=== PATIENT | male | born 1960 | race Caucasian/White ===

== ENCOUNTER 2017-02-01 08:58 | Day surgery (SDC) | payer MEDICAID ==
[~2017-02-01] VITALS: Ht 167.6 cm; Wt 92.1 kg
--- NOTE | ~2017-02-01 | OP ---
PATIENT NAME: CRYSTAL GREENE MEDICAL RECORD: [id number] :64 LOCATION:D.OPS ADMISSION DATE: SURGEON: ONRMA BAIN MD DATE OF OPERATION: 02/01/2017 PREOPERATIVE DIAGNOSIS: Degenerative arthritis of the right hip. POSTOPERATIVE DIAGNOSIS: Degenerative arthritis of the right hip. PROCEDURE: Right hip injection under fluoroscopy with TIVA anesthesia. SURGEON: Norma Bain MD. ANESTHESIA: TIVA. INTRAOPERATIVE COMPLICATIONS: None. OPERATIVE SUMMARY IN DETAIL: After obtaining the appropriate preoperative orthopedic surgery consent as well as anesthetic consultation, evaluation and clearance, the patient was brought to the operating room and placed on the operating table in supine position. After adequate TIVA anesthesia was administered, the right hip was prepped and draped in a routine sterile fashion. An 18-gauge spinal needle was introduced in the hip under fluoroscopic guidance. A small amount of Isovue was utilized to be sure that the needle was in the appropriate position and then 40 mg of Depo-Medrol with 7 cc of 0.25% bupivicaine with epi were injected into the hip. The patient tolerated the procedure well. The puncture site was covered with a bandage. The patient was taken to outpatient in stable condition. TRANSINT:[id number] Voice Confirmation ID: [id number] DOCUMENT ID: [id number] TAYA BOJORQUEZ, NORMA WALKER CC: [id number] DICTATION DATE: 02/01/17 1344 BOARDMARKER: 02/01/172023 [place] [facility] [place] [address]
[~2017-02-01 08:58] MED LIST: ACEBUTOLOL HCL200 MG PO; CELEBREX200 MG PO; HYDROCODONE-APA1 TAB PO; LISINOPRIL10 MG PO; LYRICA150 MG PO; NAPROSYN500 MG PO; OXYCONTIN10 MG PO; PRILOSEC20 MG PO; TERAZOSIN HCL2 MG PO; VALIUM5 MG PO; XANAX0.5 MG PO
[2017-02-01 10:29] LABS: HEMATOCRIT 42.4 % (42.0-54.0); HEMOGLOBIN 14.3 g/dL (13.5-17.5); MCH 31.2 pg (26.0-34.0); MCHC 33.7 g/dL (31.0-37.0); MCV 92.6 fL (80.0-100.0); MEAN PLATELET VOLUME 10.1 fL (7.4-10.4); RBC 4.58 10x6/uL (4.20-6.10); RDW 12.8 % (11.5-14.5); WBC 10.9 10x3/uL (4.8-10.8)
[2017-02-01 10:44] VITALS: BP 122/83; Ht 167.6 cm; Wt 92.1 kg
--- NOTE | 2017-02-01 13:43 | NUR ---
NO COUNTS R/T TO PROCEDURE
== END 2017-02-01 15:14 | disposition home or self-care (01) ==
LOC: D.OPS 08:58 → D.PAN 11:45 → D.OPS 11:45 → D.PAN 13:40 → D.OPS 13:40 → D.PAN 14:15 → D.OPS 15:14
PROVIDERS: Anesthesiology
DX: M16.11 Unilateral primary osteoarthritis, right hip (principal)

== ENCOUNTER → 2017-05-31 09:12 | Outpatient (CLI) | payer MEDICAID ==
[2017-02-01 10:44] VITALS: BMI 32.8
== END | disposition home or self-care (01) ==
LOC: D.OPS 09:12 → D.SP 11:00
DX: M25.551 Pain in right hip (principal)

== ENCOUNTER → 2017-10-04 07:23 | Outpatient (CLI) | payer MEDICAID ==
[2017-02-01 10:44] VITALS: BMI 32.8
== END | disposition home or self-care (01) ==
LOC: D.OPS 07:23 → D.RAD 08:00 → D.OPS 08:00
DX: M16.0 Bilateral primary osteoarthritis of hip (principal); Z01.812 Encounter for preprocedural laboratory examination

== ENCOUNTER → 2018-01-03 10:05 | Outpatient (CLI) | payer MEDICAID ==
[2017-02-01 10:44] VITALS: BMI 32.8
== END | disposition home or self-care (01) ==
LOC: D.SP 10:05 → D.OPS 11:00 → D.SP 11:00
DX: M25.551 Pain in right hip (principal); M25.552 Pain in left hip; Z01.812 Encounter for preprocedural laboratory examination

== ENCOUNTER → 2018-05-02 08:00 | Outpatient (CLI) | payer MEDICAID ==
[2017-02-01 10:44] VITALS: BMI 32.8
--- NOTE | ~2018-05-02 | HEMODYNAMI ---
PATIENT:CRYSTAL GREENE MEDICAL RECORD: [id number] : 64 LOCATION:[facility] ADMISSION DATE: 05/02/18 Generatedon:05/02/20189:27 Patient name: CRYSTAL GREENE Patient #: [id number] SSN: : 1960 Date of study: 05/02/2018 Page: Of Hemodynamic Procedure Report Patient Data Patient Demographics Procedure consent was obtained First Name: CRYSTAL Gender: Male Last Name: RAMONA : 1960 [facility] Initial: GENE Age: 57 year(s) Patient #: [id number] Race: Unknown Additional ID: [id number] Contact details Address: [place] [address] State: [place] City: [place] Zip code: [address] Past Medical History Allergies Allergen Reaction Date Comments Reported Penicillins 05/02/2018 Admission Admission Data Admission Date: 05/02/2018 Admission Time: 8:00 Procedure Procedure Types Cath Procedure Peripheral Cath Diagnostic Procedure Miscellaneous Epidural Steroid Injection Procedure Description Procedure Date Procedure Date: 05/02/2018 Procedure Start Time: 9:05 Procedure Staff Name Function Declan Maldonado MD Performing Physician Azalia Thurston RN Nurse Duran Head RT Monitor Procedure Data Cath Procedure Fluoroscopy Diagnostic fluoroscopy Total fluoroscopy Time: 0.8 time: 0.8 min min Diagnostic fluoroscopy Total fluoroscopy dose: 6 dose: 6 mGy mGy Contrast Material Contrast Material Type Amount (ml) Isovue 300 4 Hemodynamics Rest Pre Cath Intra NCS Post Cath Procedure Log Time Note 8:53:57 Duran Head RT (R) (CV) sent for patient. Start room use. 8:54:05 Time tracking: Regular hours (M-F 7:00 - 5:00) 8:54:13 Patient received from Other to IR Alert and oriented. Tansferred to table in Supine position. 8:54:17 Correct patient and procedure confirmed by team. 8:54:57 Signed procedure consent form obtained from patient. 8:55:01 8:55:04 Pre-procedure instructions explained to patient. 8:55:04 Pre-op teaching completed and patient verbalized understanding. 8:56:04 Patient allergic to Penicillins 8:56:36 PT.STATES NOT TAKING BLOOD THINNERS 8:57:09 BI-LATERAL HIPS CLEANED AND PREPPED WITH BETADINE 9:00:54 Physician arrived 9:00:56 --------ALL STOP TIME OUT------ 9:01:23 Final Timeout: patient, procedure, and site verified with staff and physician. All members of the team are in agreement. 9:02:08 Bilateral groins site verified by team. 9:02:16 Sedation plan: Local Anesthetic Medication:Lidocaine 9:02:21 Procedure started. 9:02:21 Full Disclosure recording started 9:05:22 Local anesthetic to RIGHT HIP AND LEFT HIP with Lidocaine 1% by Declan Maldonado MD.INITIAL ACCESS ONLY 9:26:23 Procedure ended.(Physican Out) 9:26:36 Fluoroscopy time 00.80 minutes. 9::41 Fluoroscopy dose: 6 mGy 9:26:41 Flurop Dose total: 6 9:26:54 Contrast amount:Isovue 300 4ml. 9:26:56 Procedure and supply charges have been captured, reviewed, submitted and are correct. Signature Audit [place] Stage Time Signature Unsigned Intra-Procedure 05/02/2018 Duran 9:27:34 AM Adilene RT (R) (CV) Signatures Monitor : Duran Signature : Adilene RT Date : Time : [facility] [address] [id number]
== END | disposition home or self-care (01) ==
LOC: D.SP 08:00 → D.RAD 09:00 → D.SP 09:00 → D.RAD 10:00
DX: M25.552 Pain in left hip (principal); M25.551 Pain in right hip

== ENCOUNTER → 2020-02-19 09:25 | Outpatient (CLI) | payer MEDICAID ==
[2017-02-01 10:44] VITALS: BMI 32.8
--- NOTE | ~2020-02-19 | EC ---
PATIENT:CRYSTAL GREENE DATE OF SERVICE: 02/19/20 SEX: M MEDICAL RECORD: [id number] DATE OF : 64 LOCATION:D.[facility] AGE OF PATIENT: 59 ADMISSION DATE: 02/19/20 REFERRING PHYSICIAN: INTERPRETING PHYSICIAN: TOM ECHOLS MD ECHOCARDIOGRAM REPORT ECHO CHARGES 4 ECHO COMPLETE Date: 02/19/20 CLINICAL DIAGNOSIS: HTN/ASSESS EF AND VALVES ECHOCARDIOGRAPHIC MEASUREMENTS (adult normal given) AC root (d.<3.7cm) 3.5 cm LV Septum d (<1.2 cm> 1.4 cm Valve Excursion 2.2 cm LV Septum (systole) 1.6 cm Left Atria (s.<4.0cm> 4.3 cm LVPW d(<1.2cm) 1.4 cm RV (d.<2.3cm) 4.2 cm LVPW (sytole) 1.7 cm LV diastole(<5.6CM) 4.9 cm MV E-F(>70mm/sec) cm LV systole 3.5 cm LVOT Diameter 2.0 cm MV exc.(>10mm) 1.5 cm Est.ejection fraction (50-75%) % DOPPLER: LVIT cm/sec A 79.0 cm/sec E 54.0 cm/sec LA cm/sec RVSP 30 mmHg LVOT 101 cm/sec AOP1/2T m/s Asc. 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 Wise TAPE# PACS Pericardial Effusion N DATE OF SERVICE: Adequate 2D, color flow imaging, spectral Doppler, and M-Mode. LVH is present. LV internal dimension is normal. Wall motion is normal . EF greater than or equal to 55%. Aortic valve is tricuspid. No evidence of stenosis by Doppler interrogation. Left atrium mildly dilated at 4.3 cm. Mitral valve shows no prolapse. Trace MR. Right-sided chambers are grossly normal. Trace TR. ECHOCARDIOGRAM REPORT [id number] CRYSTAL GREENE TRANSINT:[id number] Voice Confirmation ID: [id number] DOCUMENT ID: [id number] TOM ECHOLS MD CC: [id number] DICTATION DATE: 02/20/20 1425 EXECUTIVE SECRETARY: 02/20/20 2330 DEP CLI 02/19/20 [place] [address] [id number] [place] [id number]
== END | disposition home or self-care (01) ==
LOC: D.HCCECHO 09:25
PROVIDERS: ATTEND Internal Medicine Interventional Cardiology
DX: I10 Essential (primary) hypertension (principal)